=== PATIENT | male | born 1965 | race Caucasian/White ===

== ENCOUNTER 2018-11-08 10:04 | Inpatient (IN) | payer BC ==
[2018-11-08] MEDS: NITROGLYCERIN (SL) 0.4 MG TAB SL ×3 (10:43→20:00)
[2018-11-08] MEDS: ONDANSETRON 4 MG INJ IV (10:43)
[2018-11-08] MEDS: morphine 4 MG/ML VIAL IV (10:43)
[2018-11-08] MEDS: NITROGLYCERIN 2% 1 GM OINT PKT TD (10:44)
[2018-11-08] MEDS: ASPIRIN 325 MG TAB PO (10:44)
[2018-11-08 10:57] LABS: ADD MAN DIFF? NO
[2018-11-08 10:58] LABS: WHITE BLOOD COUNT 6.3 10^3/ul (4.8-10.8)
[2018-11-08 10:58] LABS: BASOPHILS % 0.5 % (0.0-2.0); EOSINOPHILS # 0.1 10^3/ul (0.0-0.5); EOSINOPHILS % 1.8 % (0.0-7.0); HEMATOCRIT 45.9 % (42.0-52.0); HEMOGLOBIN 15.8 g/dl (14.0-18.0); LYMPHOCYTES # 1.3 10^3/ul (0.8-2.9); LYMPHOCYTES % 21.2 % (15.0-51.0); MEAN CORPUSCULAR HEMOGLOBIN 30.6 pg (29.0-33.0); MEAN CORPUSCULAR HGB CONC 34.4 g/dl (32.0-37.0); MEAN PLATELET VOLUME 10.5 fl (7.4-10.4); MONOCYTE # 0.7 10^3/ul (0.3-0.9); MONOCYTES % 10.4 % (0.0-11.0); NEUTROPHIL # 4.2 10^3/ul (1.6-7.5); NEUTROPHILS % 65.9 % (39.0-77.0); PLATELET COUNT 217 10^3/UL (140-415); RED BLOOD COUNT 5.16 10^6/ul (4.70-6.10); RED CELL DISTRIBUTION WIDTH 12.1 % (11.5-14.5)
[2018-11-08 11:32] LABS: ALANINE AMINOTRANSFERASE 53 IU/L (13-69); ALBUMIN 4.8 g/dl (3.3-4.9); ALBUMIN/GLOBULIN RATIO 1.54; ALKALINE PHOSPHATASE 56 IU/L (42-121); ANION GAP 15 (5-13); ASPARTATE AMINO TRANSFERASE 47 IU/L (15-46); BILIRUBIN,INDIRECT 1.1 mg/dl (0-1.1); BILIRUBIN,TOTAL 1.1 mg/dl (0.2-1.3); BLOOD UREA NITROGEN 15 mg/dl (7-20); CALCIUM 9.4 mg/dl (8.4-10.2); CARBON DIOXIDE 25 mmol/L (21-31); CHLORIDE 100 mmol/L (97-110); CREATININE 0.75 mg/dl (0.61-1.24); Estimated GFR > 60 mL/min (>60); GLUCOSE 110 mg/dl (70-220); POTASSIUM 4.2 mmol/L (3.5-5.1); SODIUM 140 mmol/L (135-144); TOTAL PROTEIN 7.9 g/dl (6.1-8.1)
[2018-11-08 11:48] LABS: TROPONIN-I 0.154 ng/ml (0.000-0.120)
[2018-11-08] MEDS: SOD CHLORIDE 0.9% 1,000 ML IV ×2 (12:25→15:03)
[2018-11-08] MEDS: ENOXAPARIN 100 MG/ML SYG SC ×2 (12:28→23:38)
[2018-11-08] MEDS ORDERED: ONDANSETRON 4 MG INJ IV ×2 (12:30→13:30)
[2018-11-08] MEDS ORDERED: ACETAMINOPHEN 325 MG TAB PO ×2 (12:30→13:30)
[2018-11-08] MEDS ORDERED: HYDROCODONE/APAP (5/325) TAB PO (13:30)
[2018-11-08] MEDS ORDERED: NACL 0.9% 3 ML SYG IV (13:30)
[2018-11-08] MEDS: ATORVASTATIN 80 MG TAB PO (20:14)
[2018-11-08] MEDS: morphine 2 MG INJ IV (23:38)
[2018-11-08 23:47] LABS: CREATINE KINASE 1137 IU/L (23-200)
[2018-11-09 00:01] LABS: CK INDEX 8.8
[2018-11-09] MEDS: NITROGLYCERIN 2% 1 GM OINT PKT TD ×3 (01:45→21:00)
[2018-11-09] MEDS: PANTOPRAZOLE 40 MG INJ IV (06:38)
[2018-11-09] MEDS: morphine 2 MG INJ IV (07:00)
[2018-11-09 07:09] LABS: ADD MAN DIFF? NO
[2018-11-09 07:14] LABS: BASOPHILS % 0.3 % (0.0-2.0); EOSINOPHILS % 0.3 % (0.0-7.0); HEMATOCRIT 43.1 % (42.0-52.0); HEMOGLOBIN 14.7 g/dl (14.0-18.0); LYMPHOCYTES # 1.1 10^3/ul (0.8-2.9); LYMPHOCYTES % 9.9 % (15.0-51.0); MEAN CORPUSCULAR HGB CONC 34.1 g/dl (32.0-37.0); MEAN CORPUSCULAR VOLUME 90.9 fl (82.0-101.0); MONOCYTE # 0.8 10^3/ul (0.3-0.9); MONOCYTES % 6.9 % (0.0-11.0); NEUTROPHIL # 9.4 10^3/ul (1.6-7.5); NEUTROPHILS % 82.3 % (39.0-77.0); PLATELET COUNT 181 10^3/UL (140-415); RED BLOOD COUNT 4.74 10^6/ul (4.70-6.10)
[2018-11-09 07:14] LABS: WHITE BLOOD COUNT 11.4 10^3/ul (4.8-10.8)
[2018-11-09 08:00] LABS: ALANINE AMINOTRANSFERASE 74 IU/L (13-69); ALBUMIN 4.3 g/dl (3.3-4.9); ALBUMIN/GLOBULIN RATIO 1.72; ALKALINE PHOSPHATASE 47 IU/L (42-121); ANION GAP 8 (5-13); ASPARTATE AMINO TRANSFERASE 227 IU/L (15-46); BILIRUBIN,INDIRECT 1.2 mg/dl (0-1.1); BILIRUBIN,TOTAL 1.2 mg/dl (0.2-1.3); BLOOD UREA NITROGEN 11 mg/dl (7-20); CALCIUM 9.2 mg/dl (8.4-10.2); CARBON DIOXIDE 27 mmol/L (21-31); CHLORIDE 102 mmol/L (97-110); CHOLESTEROL 188 mg/dl (100-200); CREATININE 0.75 mg/dl (0.61-1.24); Estimated GFR > 60 mL/min (>60); GLUCOSE 110 mg/dl (70-220); HDL CHOLESTEROL 37 mg/dl (28-71); LDL CHOLESTEROL,CALCULATED 106 mg/dl; MAGNESIUM 1.9 mg/dl (1.7-2.5); POTASSIUM 4.2 mmol/L (3.5-5.1); SODIUM 137 mmol/L (135-144); TOTAL PROTEIN 6.8 g/dl (6.1-8.1); TRIGLYCERIDES 223 mg/dl (0-149)
[2018-11-09 08:03] LABS: HEMOGLOBIN A1C 4.9 % (0-5.9)
[2018-11-09] MEDS: ASPIRIN 81 MG TAB PO (08:39)
[2018-11-09] MEDS: ENOXAPARIN 100 MG/ML SYG SC ×2 (09:05→21:00)
[2018-11-09] MEDS: SOD CHLORIDE 0.9% 1,000 ML IV ×2 (12:18→12:25)
[2018-11-09] MEDS: ATORVASTATIN 80 MG TAB PO (21:00)
== END 2018-11-09 15:25 | disposition short-term general hospital (02) | DRG 282 ==
LOC: E/R 10:04 → TEL 12:27
DX: I21.4 Non-ST elevation (NSTEMI) myocardial infarction (principal)
CPT/HCPCS: 36415; 71045; 76705; 80053; 80061; 82550; 82553; 83036; 83735; 84484; 85025; 93005; 96374; 96375; 99291-25